=== PATIENT | female | born 1990 | race Caucasian/White ===

== ENCOUNTER 2024-10-29 23:43 | Emergency (ER) | payer SELFPAY ==
[~2024-10-29] VITALS: Ht 152.4 cm; Wt 54.0 kg
[2024-10-29 23:58] VITALS: BP 114/76; PULSE 88; RESP 18; TEMP 36.8; O2SAT 98
[2024-10-30] MEDS ORDERED: SODIUM CHLORIDE 0.9% 1,000 ML IV ONE (01:15)
[2024-10-30] MEDS ORDERED: ONDANSETRON HCL 4MG/2ML INJ IV ONE (01:15)
== END 2024-10-30 01:29 | disposition left against medical advice (07) ==
LOC: ER 23:50
DX: F10.129 Alcohol abuse with intoxication, unspecified (principal); Y90.9 Presence of alcohol in blood, level not specified
CPT/HCPCS: 99283; J7030